=== PATIENT | female | born 1985 | race Caucasian/White ===

== ENCOUNTER 2018-03-15 18:48 | Outpatient (CLI) | payer OTHER ==
--- NOTE | 2018-03-16 01:42 | Ultrasound Report ---
Reason: ENCOUNTER FOR TEST, RESULT POSITIVE Procedure Date: 03/15/2018 Accession Number: [id number] / [id number] Procedure: US - OB First Trimester CPT Code: FULL RESULT: EXAM: FIRST TRIMESTER OBSTETRIC ULTRASOUND (Less than 11 weeks) EXAM DATE: 03/15/2018 07:45 PM. CLINICAL HISTORY: Encounter for test, result positive. LMP: 01/29/2018. COMPARISONS: None. TECHNIQUE: Transabdominal and transvaginal ultrasound examination with static image documentation. CLINICAL DATES: EGA 6 weeks 3 days with ASHLEIGH 11/05/2018 based on LMP. ASSESSMENT: Gestational Sac: Single intrauterine. Embryo: CRL (crown-rump length) 6.6 mm = 6 weeks 4 days. Cardiac activity: 142 beats per minute. Yolk sac: 4 mm. Amniotic fluid: Not accurately assessed at this gestational age. Early placenta: Not visible at this gestational age. Other: No perigestational fluid collection demonstrated. MATERNAL STRUCTURES: Uterus: Anteverted. Unremarkable. Cervix: Closed. Right Ovary/Adnexa: The ovary measures 2.8 x 2.1 x 1.9 cm, volume 5.8 cc. Unremarkable. Left Ovary/Adnexa: The ovary measures 3 x 1.1 x 1.4 cm, volume 2.4 cc. Free Fluid: None. Unremarkable. Other: None. IMPRESSION: 1. Single viable intrauterine at EGA 6 weeks 4 days with ASHLEIGH 11/04/2018 based on crown-rump length, which is concordant with clinical dates. 2. Assigned dating is ASHLEIGH 11/05/2018 based on LMP. 3. No concerning adnexal lesions. Both ovaries are normal. No subchorionic hemorrhage or other concerning findings. RADIA
== END 2018-03-15 18:49 | disposition home or self-care (01) ==
LOC: DI 18:48
PROVIDERS: ATTEND Obstetrics & Gynecology
DX: Z32.01 Encounter for pregnancy test, result positive (principal); Z3A.01 Less than 8 weeks gestation of pregnancy
CPT/HCPCS: 76801; 76817

== ENCOUNTER 2018-04-13 08:00 | Outpatient (CLI) | payer OTHER ==
[2018-04-13 19:20] LABS: MUDS CUTOFF CONCENTRATIONS CUTOFF CONC BELOW:
[2018-04-13 20:07] LABS: AMPHETAMINE SCREEN,URINE NEGATIVE (NEGATIVE); BENZODIAZEPINES SCREEN, URINE NEGATIVE (NEGATIVE); COCAINE SCREEN URINE NEGATIVE (NEGATIVE); METHADONE SCREEN, URINE NEGATIVE (NEGATIVE); METHAMPHETAMINES SCREEN, URINE NEGATIVE (NEGATIVE); OPIATE SCREEN, URINE NEGATIVE (NEGATIVE); OXYCODONE SCREEN, URINE NEGATIVE (NEGATIVE); PROPOXYPHENE SCREEN, URINE NEGATIVE (NEGATIVE); TRICYCLIC ANTIDEPRESSANT,URINE NEGATIVE (NEGATIVE)
== END 2018-04-13 08:01 | disposition home or self-care (01) ==
LOC: LAB.R 08:00
PROVIDERS: ATTEND Nurse Practitioner Obstetrics & Gynecology
DX: Z36.9 Encounter for antenatal screening, unspecified (principal)
CPT/HCPCS: 80306; 87491; 87591

== ENCOUNTER 2018-04-17 12:07 | Outpatient (CLI) | payer OTHER ==
[2018-04-17 12:30] LABS: BASOPHILS % (AUTO) 0.4 %; EOSINOPHILS % (AUTO) 0.5 %; HGB - HEMOGLOBIN 11.8 g/dL (12.0-16.0); LYMPHOCYTES # (AUTO) 1.4 10^3/uL (1.5-3.5); LYMPHOCYTES % (AUTO) 24.1 %; MEAN CORPUSCULAR HEMOGLOBIN 32.2 pg (27.0-31.0); MEAN CORPUSCULAR HGB CONC 36.1 g/dL (32.0-36.0); MEAN CORPUSCULAR VOLUME 89.2 fL (81.0-99.0); MEAN PLATELET VOLUME 8.4 fL (7.9-10.8); MONOCYTES # (AUTO) 0.3 10^3/uL (0.0-1.0); MONOCYTES % (AUTO) 5.8 %; NEUTROPHILS % (AUTO) 69.2 %; PLT - PLATELET COUNT 254 10^3/uL (130-450); RED BLOOD COUNT 3.66 10^6/uL (4.20-5.40); WHITE BLOOD COUNT 5.8 x10^3/uL (4.8-10.8)
[2018-04-17 14:04] LABS: BILIRUBIN,URINE NEGATIVE (NEGATIVE); GLUCOSE, URINE (UA) NEGATIVE (NEGATIVE); KETONES,URINE (UA) NEGATIVE (NEGATIVE); LEUKOCYTE ESTERASE, URINE NEGATIVE (NEGATIVE); NITRITE,URINE NEGATIVE (NEGATIVE); OCCULT BLOOD,URINE NEGATIVE (NEGATIVE); PROTEIN,URINE NEGATIVE (NEGATIVE); UROBILINOGEN,URINE 0.2 (NORMAL) E.U./dL (NORMAL)
[2018-04-17 14:12] LABS: BACTERIA,URINE None Seen /HPF (None Seen); CLARITY,URINE CLEAR (CLEAR); RBC,URINE 0-5 /HPF (0-5); SQUAMOUS EPITHELIAL CELL,UR RARE Squamous (<= Few)
[2018-04-18 13:47] LABS: HEPATITIS C ANTIBODY NON-REACTIVE (NON-REACTIVE); HIV AG/AB 4TH GEN NON-REACTIVE (NON-REACTIVE)
[2018-04-18 13:49] LABS: HEPATITIS B SURFACE ANTIGEN NON-REACTIVE (NON-REACTIVE)
== END 2018-04-17 12:08 | disposition home or self-care (01) ==
LOC: LAB 12:07
PROVIDERS: ATTEND Nurse Practitioner Obstetrics & Gynecology
DX: O09.891 Supervision of other high risk pregnancies, first trimester (principal); Z36.9 Encounter for antenatal screening, unspecified
CPT/HCPCS: 36415; 81001; 81599; 85025; 86592; 86762; 86803; 86850; 86900; 86901; 87340; 87389

== ENCOUNTER 2018-06-04 15:20 | Outpatient (CLI) | payer OTHER | END 2018-06-04 15:21 | disposition home or self-care (01) | LOC: LAB.R 15:20 | PROVIDERS: ATTEND Registered Nurse | DX: R82.998 Other abnormal findings in urine (principal) | CPT/HCPCS: 87086 ==

== ENCOUNTER 2018-09-04 15:00 | Outpatient (CLI) | payer OTHER ==
[2018-09-04 20:36] LABS: MEAN CORPUSCULAR HEMOGLOBIN 31.7 pg (27.0-31.0); MEAN CORPUSCULAR HGB CONC 34.2 g/dL (32.0-36.0); MEAN CORPUSCULAR VOLUME 92.8 fL (81.0-99.0); MEAN PLATELET VOLUME 8.9 fL (7.9-10.8); RED BLOOD COUNT 3.16 10^6/uL (4.20-5.40); RED CELL DISTRIBUTION WIDTH 12.9 % (12.0-15.0); WHITE BLOOD COUNT 7.4 x10^3/uL (4.8-10.8)
== END 2018-09-04 23:59 | disposition home or self-care (01) ==
LOC: LAB.N 15:00
PROVIDERS: ATTEND Registered Nurse
DX: Z34.90 Encounter for supervision of normal pregnancy, unspecified, unspecified trimester (principal)
CPT/HCPCS: 36415; 82950; 85027; 86850

== ENCOUNTER 2018-09-07 07:50 | Outpatient (CLI) | payer OTHER | END 2018-09-07 07:51 | disposition home or self-care (01) | LOC: LAB 07:50 | PROVIDERS: ATTEND Nurse Practitioner Obstetrics & Gynecology | DX: O99.810 Abnormal glucose complicating pregnancy (principal) | CPT/HCPCS: 36415; 82951; 82952 ==

== ENCOUNTER 2018-10-12 08:00 | Outpatient (CLI) | payer OTHER | END 2018-10-12 23:59 | disposition home or self-care (01) | LOC: LAB.R 08:00 | PROVIDERS: ATTEND Registered Nurse | DX: Z34.90 Encounter for supervision of normal pregnancy, unspecified, unspecified trimester (principal) | CPT/HCPCS: 87491; 87591; 87797 ==

== ENCOUNTER 2018-10-31 12:14 | Outpatient (CLI) | payer OTHER ==
[2018-11-01 12:46] LABS: HEPATITIS C ANTIBODY NON-REACTIVE (NON-REACTIVE)
[2018-11-01 13:59] LABS: HIV AG/AB 4TH GEN NON-REACTIVE (NON-REACTIVE)
== END 2018-10-31 12:15 | disposition home or self-care (01) ==
LOC: LAB 12:14
PROVIDERS: ATTEND Registered Nurse
DX: Z34.90 Encounter for supervision of normal pregnancy, unspecified, unspecified trimester (principal)
CPT/HCPCS: 36415; 81599; 86803; 87389

== ENCOUNTER 2018-11-08 05:41 | Inpatient (IN) | payer OTHER ==
[2018-11-08] MEDS ORDERED: OXYTOCIN/SODIUM CHLORIDE 500 ML IV PRN ×2 (07:35→13:23)
[2018-11-08] MEDS ORDERED: SODIUM CHLORIDE FLUSH 0.9% 10 ML SYRINGE IVP PRN (07:35)
[2018-11-08] MEDS ORDERED: fentaNYL 100 MCG/2 ML VIAL IVP PRN (07:35)
[2018-11-08] MEDS ORDERED: ONDANSETRON 4 MG/2 ML VIAL IVP PRN ×2 (07:35→08:28)
--- NOTE | 2018-11-08 07:48 | HISTORY & PHYSICAL EXAMINATION ---
Admit History - Visit Reason Visit Reason: Contractions - : 3 Parity: 1 Premature: 0 Ectopic: 0 : 1 Care: positive: [facility] Risk/History: positive: None Complications This : positive: None Smoking Status: Never smoker - Mother's Labs Mother's Blood Type: positive: O Mother's RH: positive: Positive GBS: positive: Group B Step Negative Rubella Status: positive: Immune Review of Systems - Constitutional Constitutional: reports: Fatigue. denies: Fever, Chills - Eyes Eyes: denies: Blurred vision, Spots in vision, Field loss - Cardiovascular Cariovascular: denies: Irregular heart rate, Palpitations, Chest pain, Edema - Respiratory Respiratory: denies: Cough, SOB at rest, SOB with exertion - Gastrointestinal Gastrointestinal: reports: Abdominal pain, Diarrhea, Change in bowel habits. denies: Nausea, Vomiting - Genitourinary Genitourinary: reports: Frequency, Urgency. denies: Dysuria - Musculoskeletal Musculoskeletal: reports: Back pain. denies: Muscle pain, Muscle aches - Integumentary Integumentary: denies: Rash, Pruritis, Lesions - Neurological Neurological: denies: General weakness, Focal weakness, Headache, Dizziness - Psychiatric Psychiatric: reports: Anxiety. denies: Depression - All Other Systems All Other Systems: reports: Reviewed and negative Physical - Abdominal Exam Vital Signs: Temp Pulse Resp BP Pulse Ox 38.6 C H 85 18 115/69 11/08/18 06:14 11/08/18 06:14 11/08/18 06:14 11/08/18 06:14 Contraction Frequency (min/apart): 2-3 Contraction Intensity: positive: Moderate Uterine Resting Tone: positive: Soft - Monitoring Heart Rate Baseline: 140 Strip Review: positive: Category I - Presentation Presentation: positive: Vertex - Vaginal Exam Membranes: positive: Membranes intact Dilation (in cm): 7 Effacement (%): 100 Station: positive: -1 Cervical Position: positive: Anterior - Speculum Exam Speculum Exam Performed: positive: No - Other Notes Labor Progress Note/Additional Text: Nick Benson is a 32 y/o @ 40w4d by early first trimester US who received consistent care w/o complication t/o her . She had normal screening labs, with the exception of an elevated 1-hr gtt, which was followed by a normal 3-hr gtt, and mild anemia w/ hgb 10.0 on oral iron supplementation. She presents w/ a complaint of spontaneous onset of uterine contractions @ 0200. No LOF/VB. +FM. +diarrhea. She had intended unmedicated delivery but is now requesting pain management w/ epidural anesthesia. PMH: Unremarkable PSH: D&E 2013, no complications OBhx: 2013 D&E @ 17 weeks, no complications; 2016 6#12oz w/ epidural anesthesia, no complications GYNhx: No hx STI, no hx abnormal pap Sochx: to [facility], no DV; unemployed; lives w/ & daughter, no social concerns; denies ETOH/tobacco/drugs Famhx: Non-contributory PE: GEN: AAOX3, very uncomfortable gravid female HEENT: grossly normocephalic, atraumatic RESP: unable to auscultate secondary to pt distress, no audible or visible respiratory distress, SPO2 100% CARDIAC: Unable to auscultate secondary to pt distress, SPO2 in place, regist ering consistent HR 90s-110s ABD: Gravid, strong palpable uterine contractions OB: EFM bl 140bpm, +accels, no decels, mod kathy; cat I; toco: UCs q2-3 min, palp strong; SVE: 7/100/-1 anterior IBOW : No lesion, physiologic d/c MS: FROM t/o, no deformity, erythema/edema SKIN: warm, well-perfused, c/d/i, no lesion; +tattoos, +piercings NEURO: No focal deficit PSYCH: distressed, appropriately, secondary to discomfort Plan for Labor - Plan For Labor I expect patient to be DC'd or transferred within 96 hours.: Yes Plan for Labor: 1. Admit to inpatient 2. CBC/type & screen 3. NO2 now & notify anesthesia of pt desire for epidural placement, expedite placement as able 4. Anticipate
[2018-11-08] MEDS ORDERED: LACTATED RINGERS 1,000 ML IV SCH (08:00)
[2018-11-08] MEDS ORDERED: BUPIVACAINE 0.25% PF 10 ML VIAL ONE (08:06)
[2018-11-08] MEDS ORDERED: fent/BUPIV 2 MCG/0.125% 250 ML EP ONE (08:06)
[2018-11-08 08:18] LABS: BASOPHILS % (AUTO) 0.4 %; EOSINOPHILS % (AUTO) 0.3 %; LYMPHOCYTES # (AUTO) 1.7 10^3/uL (1.5-3.5); LYMPHOCYTES % (AUTO) 14.1 %; MEAN CORPUSCULAR HGB CONC 34.1 g/dL (32.0-36.0); MEAN CORPUSCULAR VOLUME 90.7 fL (81.0-99.0); MEAN PLATELET VOLUME 10.4 fL (7.9-10.8); MONOCYTES # (AUTO) 0.9 10^3/uL (0.0-1.0); MONOCYTES % (AUTO) 7.5 %; NEUTROPHILS # (AUTO) 9.4 10^3/uL (1.5-6.6); NEUTROPHILS % (AUTO) 77.7 %; PLT - PLATELET COUNT 208 10^3/uL (130-450); RED BLOOD COUNT 3.88 10^6/uL (4.20-5.40); RED CELL DISTRIBUTION WIDTH 13.2 % (12.0-15.0); WHITE BLOOD COUNT 12.1 x10^3/uL (4.8-10.8)
--- NOTE | 2018-11-08 08:19 | ANESTHESIA ---
Pre-Anesthesia VS, & Labs - Diagnosis Active labor - Procedure vaginal delivery Vital Signs: Temp Pulse Resp BP Pulse Ox 38.6 C H 85 18 115/69 11/08/18 06:14 11/08/18 06:14 11/08/18 06:14 11/08/18 06:14 - NPO Other (clear liquids) - Is Patient ?: Yes Home Medications and Allergies Active Medications Fentanyl (Fentanyl) 50 mcg IVP Q1H PRN PRN Reason: PAIN Lactated Ringer's (Lr) 1,000 mls @ 150 mls/hr IV .Q6H40M MARIELLE Oxytocin/Sodium Chloride (Pitocin/Sodium Chloride) 500 mls @ 999 mls/hr IV PRN PRN; Protocol PRN Reason: POST- HEMORR PREVENTION Ondansetron HCl (Zofran Inj) 4 mg IVP Q4H PRN PRN Reason: Nausea / Vomiting Sodium Chloride (Normal Saline Flush 0.9%) 10 ml IVP PRN PRN PRN Reason: NEEDED PER PROVIDER ORDERS Sodium Chloride (Normal Saline Flush 0.9%) 10 ml IVP 0100,0900,1700 [facility] Allergies/Adverse Reactions: Allergies Allergy/AdvReac Type Severity Reaction Status Date / Time Penicillins Allergy Unknown Unknown Verified 11/08/18 08:19 Anes History & Medical History - Anesthetic History Anesthesia Complications: reports: No previous complications - Medical History Cardiovascular: reports: None Pulmonary: reports: None Gastrointestinal: reports: None Urinary: reports: None Neuro: reports: None Musculoskeletal: reports: None Endocrine/Autoimmune: reports: None Blood Disorders: reports: None Skin: reports: None Smoking Status: Never smoker Psychosocial: reports: No issues indicated - Surgical History General: Other (lipoma removal) - Obstetrical History : 3 Parity: 1 Events: positive: None Complications: positive: None Exam General: Alert, Oriented x3, Cooperative, No acute distress Dental: WNL Mouth Openin Fingerbreadth Neck Mobility: Normal Mallampati classification: II Thyromental Distance: 4-6 cm Plan Anesthesia Type: Epidural Consent for Procedure(s) Verified and Reviewed: Yes Code Status: Attempt Resuscitation ASA classification: 2-Mild systemic disease Is this case an emergency?: No
--- NOTE | 2018-11-08 08:25 | PROVIDER PROGRESS NOTE ---
Labor Progress Note - Uterine Monitoring Uterine Monitoring Mode: positive: External toco Contraction Frequency (min/apart): 2-3 Contraction Intensity: positive: Strong Uterine Resting Tone: positive: Soft - Monitoring Monitor Mode: positive: External ultrasound Heart Rate Baseline: 125 Heart Rate Variability: positive: Moderate (6-25 bmp) Accelerations: positive: Present, 15x15 Decelerations: positive: Early Strip Review: positive: Category I - Vaginal Exam Dilation (in cm): 8-9 Effacement (%): 100 Station: -1 Cervical Position: Anterior - Labor Progress Note Labor Progress Note/Additional Text: S: Nick is getting progressively comfortable w/ her epidural in place. Her & mother are present @ the bedside & are involved & very supportive. O: AAox3, NAD WA gravid female; VSS EFM: Bl 125bpm, +accels, early decels to [place] in 100s w/ spontaneous return to baseline by contraction's cessation; TOCO: UCs q2-3 min x60 seconds, palp strong, SVE: 8-9/100/-1 BBOW A: 32 y/o @ 40w4d by first trimester US in active, spontaneous labor Progressive cervical change IBOW, GBS neg FHTs cat I Adequate pain control w/ epidural anesthesia P: 1. Pt declines AROM & delivery, would like to rest 2. Encouraged rest & reviewed positioning 3. Reassess cervical status w/ clear clinical indication/urge to push or x2 hours if no obvious chane 4. Report provided [id number] to Khalida Daniel CNM, who will assume pt's ongoing care 5. Reviewed plan of care w/ pt, family & RN @ bedside; all in agreement, without concerns
[2018-11-08] MEDS ORDERED: NALOXONE 0.4 MG/ML VIAL IVP PRN (08:28)
[2018-11-08] MEDS ORDERED: NALBUPHINE 10 MG/ML AMP IVP PRN (08:28)
[2018-11-08] MEDS ORDERED: LACTATED RINGERS 500 ML IV ONE (08:28)
[2018-11-08] MEDS ORDERED: ePHEDrine 50 MG/ML VIAL IVP PRN (08:28)
[2018-11-08] MEDS ORDERED: fent/BUPIV 2 MCG/0.125% 250 ML EP PRN (08:28)
[2018-11-08] MEDS ORDERED: fentaNYL 100 MCG/2 ML VIAL ONE (08:40)
[2018-11-08] MEDS ORDERED: LIDOCAINE-PF 2% 10 ML AMP SUBQ ONE (08:40)
[2018-11-08] MEDS ORDERED: SODIUM CHLORIDE 0.9% 10 ML ONE (08:40)
[2018-11-08] MEDS ORDERED: SODIUM CHLORIDE FLUSH 0.9% 10 ML SYRINGE IVP SCH (09:00)
--- NOTE | 2018-11-08 10:38 | PROVIDER PROGRESS NOTE ---
Labor Progress Note - Uterine Monitoring Uterine Monitoring Mode: positive: External toco Contraction Frequency (min/apart): 2-4 Contraction Intensity: positive: Strong Uterine Resting Tone: positive: Soft - Monitoring Monitor Mode: positive: External ultrasound Heart Rate Baseline: 120 Heart Rate Variability: positive: Moderate (6-25 bmp) Accelerations: positive: Present, 15x15 Decelerations: positive: None Strip Review: positive: Category I - Vaginal Exam Dilation (in cm): 8 Effacement (%): 100 Station: 1 Cervical Position: Anterior - Labor Progress Note Labor Progress Note/Additional Text: S: Sitting in bed comfortable with epidural. and mother supportive at the bedside. She states she was not able to feel pressure with contractions when she was complete and had an epidural with her daughter. Moral is good. O: BP 111/73 AROM small amount of clear fluid at 0942 FHR baseline 125, moderate variability, + accels, no decels. Contractions palpate strong every 2-4 minutes with soft resting SVE 8/100/+1, vertex, soft A: 32yo @ 40.4wks gestation GBS neg FHT Category I P: Continue expectant management Continuos monitoring Anticipate spontaneous vaginal delivery.
[2018-11-08] MEDS ORDERED: WITCH HAZEL/GLYCERIN 1 EACH MED..PAD TOP PRN (13:22)
[2018-11-08] MEDS ORDERED: HYDROCORTISONE 1% CREAM 28 GM TUBE PR PRN (13:22)
--- NOTE | 2018-11-08 13:22 | DELIVERY NOTE ---
Delivery Note - Labor Labor: positive: Augmented by ARM - Infant Delivery Method Delivery Method: positive: Spontaneous vaginal delivery - Presentation Presentation: positive: Vertex, NASEEM - left occiput anterior - Nuchal Cord Nuchal Cord: positive: None - Amniotic Fluid Description Amniotic Fluid Description: positive: Clear - Laceration Laceration: positive: None - Delivery Outcome Delivery Outcome: positive: Livebirth - : positive: Placed in direct skin contact with mother, Bulb syringe, Stimulated, Warmed, [place] used sex: positive: Female - Cord Cord: positive: 3 vessels - Placenta Placenta: positive: Intact, Spontaneous - Estimated Blood Loss Estimated Blood Loss (in cc): 150 - Post Delivery Events Post Delivery Events: positive: No post delivery events - Delivery Comments (Free Text/Narrative) Delivery Comments (Free Text/Narrative): This 32yo @ 40.4wks gestation by L= first trimester U/S. Cervix was 7/100/-1, vertex. FHR pattern demonstrated Category I pattern throughout labor. Epidural placed per maternal request. Normal labor course. AROM occurred at 0942 and was noted to be a small amount of clear fluid. The patient progressed to c/c/+1 at 1210. She spontaneously delivered a viable female infant on 11/08/2018 at 1234. No nuchal cord. 's 9/9 at 1 and 5 min respectively. The was placed on maternal abdomen, stimulated, dried, and placed skin to skin. Pitocin administered via IV for hemostasis. The umbilical cord was allowed to stop pulsating at which time it was doubly clamped by CNM and cut by FOB. 3VC. Cord blood was obtained. Placenta delivered spontaneously and intact at 1237. EBL 150mL. Uterine fundus firm and there is no excessive bleeding. The perineum, vagina, and cervix were inspected and noted to be have superficial perineal laceration which was hemostatic and did not require repair. Tissues well approximated. initiated. Family bonding well. Both mother and baby were left in stable condition.
[2018-11-08] MEDS: IBUPROFEN 800 MG TABLET PO SCH ×2 (14:00→22:35)
[2018-11-08] MEDS: ACETAMINOPHEN 500 MG TABLET PO SCH ×2 (14:00→22:00)
[2018-11-08] MEDS: DOCUSATE SODIUM 100 MG CAPSULE PO SCH (22:38)
[2018-11-09] MEDS: IBUPROFEN 800 MG TABLET PO SCH (04:58)
--- NOTE | 2018-11-09 07:13 | Discharge Plan ---
Discharge Plan Disposition: 01 Home, Self Care Condition: Good Diet: Regular Activity Restrictions: No Restrictions Shower Restrictions: No Driving Restrictions: No Weight Bearing: Full Weight No Smoking: If you smoke, Please STOP! Call for help. Follow-up with: Khalida Daniel CNM, ARNP [Provider Admit Priv/Credential] -
--- NOTE | 2018-11-09 07:15 | PROVIDER PROGRESS NOTE ---
Subjective - Subjective Subjective: FINAL PROGRESS NOTE: S: Bonding well with baby. without difficulty although she states the baby has a very strong latch. She feels baby's latch is appropriate and denies pain while feeling, but states she is slightly worried about her nipples become sore secondary to infant's strong latch. Pain well controlled with oral medications. Bleeding decreased and is light. Desires to go home today as soon as possible. O: BP 105/62, T 36.6, HR 61, RR 18 Heart RRR w/o M/G/R, lungs CTAB, abdomen soft and nontender with fundus firm at U-2. Bilateral LE's trace edema. Perineum intact. A: 232o -->P2 PPD#1 s/p TSVD P: Discharge home today on PPD#1. Reviewed warning s/sx and when to present. Advised continuation of PNV while and PRN ibuprofen and tylenol for pain management. Rx provided for all purpose nipple ointment and pt requests Rx for support band - provided. Plan f/u in 1 week for support visit PRN and follow up in 3 weeks for routine visit. Pt verbalized understanding and agrees to above plan. She denies further questions or concerns at this time. Objective - Vital Signs/Intake & Output Vital Signs: Vital Signs x48h Temp Pulse Resp BP Pulse Ox 11/09/18 04:40 36.6 C 61 18 105/62 97 11/09/18 00:07 36.9 C 71 18 114/60 96 Intake & Output: Intake & Output 11/06/18 11/07/18 11/08/18 11/09/18 23:59 23:59 23:59 23:59 Intake Total 1750 Output Total 350 Balance 1400 - Lab Results Fish Bones: 11/08/18 08:00 Other Labs: Lab Results x24hrs 11/08/18 11/08/18 Range/Units 08:00 08:00 WBC 12.1 H (4.8-10.8) x10^3/uL RBC 3.88 L (4.20-5.40) 10^6/uL Hgb 12.0 (12.0-16.0) g/dL Hct 35.1 L (37.0-47.0) % MCV 90.7 (81.0-99.0) fL MCH 31.0 (27.0-31.0) pg MCHC 34.1 (32.0-36.0) g/dL RDW 13.2 (12.0-15.0) % Plt Count 208 (130-450) 10^3/uL MPV 10.4 (7.9-10.8) fL Neut # (Auto) 9.4 H (1.5-6.6) 10^3/uL Lymph # (Auto) 1.7 (1.5-3.5) 10^3/uL Grady # (Auto) 0.9 (0.0-1.0) 10^3/uL Eos # (Auto) 0.0 (0.0-0.7) 10^3/uL Baso # (Auto) 0.0 (0.0-0.1) 10^3/uL Absolute Nucleated RBC 0.00 x10^3/uL Nucleated RBC % 0.0 /100WBC Blood Type O POSITIVE Antibody Screen NEGATIVE
[2018-11-09] MEDS: ACETAMINOPHEN 500 MG TABLET PO SCH (08:00)
--- NOTE | 2018-11-09 08:27 | DISCHARGE SUMMARY ---
Physician: RAJ Dominguez DATE OF ADMISSION: 11/08/2018 DATE OF DISCHARGE: 11/09/2018 DIAGNOSES ON ADMISSION 1. A 32-year-old G3, P1-0-1-1 at 40.4 weeks gestation. 2. Active labor. 3. Group B Streptococcus negative. DIAGNOSES ON DISCHARGE 1. A 32-year-old G3, P2-0-1-2, status post spontaneous vaginal delivery on 11/08/2018. 2. Normal recovery. 3. . HISTORY OF PRESENT ILLNESS: She is a patient of [facility] who presented on 11/08/2018 with complaints of contractions. The patient was found to contract every 2-4 minutes and her cervix was noted to be 7 cm dilated, 100% effaced at -1 station in vertex position with amniotic membranes intact. AROM occurred at 0942 hours, and was noted to be a small amount of clear fluid. The patient progressed to spontaneously deliver a viable female at 1234 hours on 11/08/2018. Apgars were 9 and 9 at 1 and 5 minutes respectively. EBL 150 mL. The perineum, vagina and cervix were inspected and found to have superficial perineal laceration, which was hemostatic, and did not require repair. HOSPITAL COURSE: She has been doing well in her course. She is ambulating and tolerating a regular diet. She is urinating without difficulty, and her lochia is normal. Her pain is well controlled with oral medications. She will be discharged home today on day #1 with prescriptions for all-purpose nipple ointment and abdominal belly band for use. She has been advised to continue her vitamin while , and to continue [id number] ibuprofen and Tylenol for pain management as needed. She intends to followup with myself at [facility] in 3 weeks for routine visit. She has been given precautions to call if she has any worsening fevers, chills, abdominal pain, increased bleeding or foul- smelling vaginal lochia. TD: 11/09/2018 07:21 YONATAN
[2018-11-09] MEDS: DOCUSATE SODIUM 100 MG CAPSULE PO SCH (10:54)
[2018-11-09 12:35] VITALS: BP 108/70
--- NOTE | 2018-11-09 13:56 | Labor Flowsheet ---
Labor Flowsheet Datetime Report Generated by CPN: 11/09/2018 13:55 Datetime: 11/08/2018 12:30 : 82 LaborFlag: Labor Datetime: 11/08/2018 12:20 SpO2 (%): 94 Datetime: 11/08/2018 12:10 VAGINAL EXAM Dilatation (cm): 10.0 Effacement (%): 100 Station: 2 Vaginal Bleeding: None Cervix, Consistency: Soft Cervix, Position: Midposition Datetime: 11/08/2018 11:55 UTERINE ACTIVITY Monitor Mode: External Monitor Interventions for UA: [place] Adjusted Frequency (min): 2-3 Quality: Strong Duration (sec): 60-70 Pattern: Normal: <= 5 Contractions in 10 Minutes Resting Tone (Palpate): Relaxed ASSESSMENT A Monitor Mode: External US Monitor Interventions for FHR: Ultrasound Adjusted FHR Baseline Rate : 125 FHR Baseline Changes: No Baseline Change Variability: Moderate 6-25 bpm Accelerations: 15X15 Decelerations: None Category: Category I PATIENT CARE Oxygen Method: Nasal Cannula Datetime: 11/08/2018 11:30 Exam by: P Gallagher, RN Datetime: 11/08/2018 11:15 Anesthesia Level Check: T10- Umbilicus Datetime: 11/08/2018 09:42 Membrane Status: Ruptured Membranes Rupture Method: Artificial Amniotic Fluid Color: Clear Amniotic Fluid Amount: Moderate Amniotic Fluid Odor: Normal Datetime: 11/08/2018 09:37 Provider Reviewed Strip: Yes COMMUNICATION Communication: Provider at Bedside Provider Notified (Name): A. María Notification Reason: Labor Status Datetime: 11/08/2018 09:24 I/O Interventions: Ice Chips Given Datetime: 11/08/2018 08:38 Epidural Procedure Other: Pump Started Datetime: 11/08/2018 08:36 MATERNAL ASSESSMENT Level of Consciousness: Fully Conscious DTR's/Clonus: DTRs 2+; No Clonus Headache: Denies Nausea/Vomiting: Denies RUQ Epigastric Pain: Denies Datetime: 11/08/2018 08:12 ANESTHESIA Epidural Procedure: Loading Dose Datetime: 11/08/2018 08:10 Stage of : Labor VITAL SIGNS NBP Sys/Carolyn/Mean (mmHg): 89 : 65 Pulse: 72
== END 2018-11-09 13:45 | disposition home or self-care (01) | DRG 807 ==
LOC: WFO 05:41 → FBP 05:43 → WFO 07:34 → FBP 07:35
PROVIDERS: ADMIT Registered Nurse; ATTEND Nurse Practitioner Obstetrics & Gynecology
PROC: 10E0XZZ Delivery of Products of Conception, External Approach (ICD-10-PCS; principal; 2018-11-08)
PROC: 10907ZC Drainage of Amniotic Fluid, Therapeutic from Products of Conception, Via Natural or Artificial Opening (ICD-10-PCS; 2018-11-08)
DX: O99.02 Anemia complicating childbirth (principal); Z37.0 Single live birth; D64.9 Anemia, unspecified; O70.0 First degree perineal laceration during delivery; Z3A.40 40 weeks gestation of pregnancy
CPT/HCPCS: 36415; 59025; 85025; 86850; 86900; 86901; 99212; A9270; J7120; 99211